=== PATIENT | female | born 1995 | race Caucasian/White ===

== ENCOUNTER 2023-09-29 10:29 | Outpatient (CLI) | payer BC ==
[~2023-09-29] VITALS: Ht 152.4 cm; Wt 83.6 kg
[~2023-09-29 10:29] MED LIST: FERR325T19 PO; PHEN-239
[2023-09-29 10:50] VITALS: BP 135/62; O2SAT 99
[2023-09-29] MEDS: ACETAMINOPHEN TAB 650MG DOSE (2X325MG) PO ONE (10:59)
[2023-09-29] MEDS: diphenhydrAMINE 50MG CAP PO ONE (10:59)
[2023-09-29] MEDS: FERRIC CARBOXYMALTOSE INJ 750 MG in NS 250 ML (>50kg) IV ONE (11:18)
[2023-09-29 13:20] VITALS: BP 110/71; O2SAT 100
== END 2023-09-29 13:20 ==
LOC: M INFU 10:29
PROVIDERS: ATTEND Internal Medicine Medical Oncology
DX: D50.9 Iron deficiency anemia, unspecified (principal)
CPT/HCPCS: 96365; J1439

== ENCOUNTER 2023-10-13 16:30 | Outpatient (CLI) | payer BC ==
[~2023-10-13] VITALS: Ht 152.4 cm; Wt 83.6 kg
[2023-10-13 16:30] VITALS: BP 132/61; O2SAT 98
[2023-10-13] MEDS: ACETAMINOPHEN TAB 650MG DOSE (2X325MG) PO ONE (16:35)
[2023-10-13] MEDS: diphenhydrAMINE 50MG/ML VIAL IV ONE (16:35)
[2023-10-13] MEDS: FERRIC CARBOXYMALTOSE INJ 750 MG in NS 250 ML (>50kg) IV ONE (16:44)
[2023-10-13 17:51] VITALS: BP 114/64; O2SAT 100
== END 2023-10-13 18:00 | disposition home or self-care (01) ==
LOC: M INFU 16:30
PROVIDERS: ATTEND Internal Medicine Medical Oncology
DX: D50.9 Iron deficiency anemia, unspecified (principal)
CPT/HCPCS: 96365; 96375; J1200; J1439

== ENCOUNTER → 2024-05-26 | Outpatient (REF) | LOC: M LAB 11:27 | PROVIDERS: ATTEND Family Medicine | DX: Z00.00 Encounter for general adult medical examination without abnormal findings (principal) ==

== ENCOUNTER → 2024-06-16 | Outpatient (CLI) | payer OTHER ==
[2024-06-16 10:06] LABS: CHOLESTEROL LEVEL 201 MG/DL (<200); CHOLESTEROL RISK RATIO 3.73 (<5); HDL CHOLESTEROL 53.8 MG/DL (>40); LDL CHOLESTEROL 117.2 MG/DL (<100); NON-HDL-C 147.2 MG/DL; TRIGLYCERIDES LEVEL 150 MG/DL (<150)
[2024-06-16 10:34] LABS: HCG, SERUM QUALITATIVE NEGATIVE (NEGATIVE)
== END ==
LOC: M LAB 08:33
PROVIDERS: ATTEND Physician Assistant
DX: E66.9 Obesity, unspecified (principal); E78.5 Hyperlipidemia, unspecified

== ENCOUNTER 2024-06-24 19:04 | Emergency (ER) | payer OTHER ==
[~2024-06-24] VITALS: Ht 157.5 cm; Wt 81.8 kg
[2024-06-24 19:07] VITALS: BP 128/67; TEMP 98.2; O2SAT 98
[2024-06-24 20:33] LABS: BASO # 0.1 10^3/uL (0.0-0.2); BASO % 0.7 % (0.0-1.0); EOS # 0.2 10^3/uL (0.0-0.5); EOS % 2.1 % (0.0-3.0); HEMATOCRIT 36.6 % (36.0-47.0); HEMOGLOBIN 11.9 g/dl (12.0-15.5); LYMPH # 2.8 10^3/uL (1.5-5.0); LYMPH % 37.9 % (24.0-44.0); MEAN CORPUSCULAR HEMOGLOBIN 26.2 pg (27.0-33.0); MEAN CORPUSCULAR HGB CONC 32.5 g/dl (32.0-36.5); MEAN CORPUSCULAR VOLUME 80.4 fl (80.0-96.0); MONO # 0.5 10^3/uL (0.0-0.8); MONO % 7.2 % (2.0-8.0); NEUTROPHILS # 3.8 10^3/uL (1.5-8.5); NEUTROPHILS % 51.6 % (36.0-66.0); PLATELET COUNT, AUTOMATED 291 10^3/uL (150-450); RED BLOOD COUNT 4.55 10^6/uL (4.00-5.40); WHITE BLOOD COUNT 7.5 10^3/uL (4.0-10.0)
[2024-06-24 21:03] LABS: ALBUMIN 3.9 G/DL (3.2-5.2); ALKALINE PHOSPHATASE 73 U/L (35-104); ALT/SGPT 29 U/L (7.0-40); AST/SGOT 16 U/L (<34); BILIRUBIN,TOTAL 0.2 MG/DL (0.3-1.2); BLOOD UREA NITROGEN 14 MG/DL (9-23); CALCIUM LEVEL 10.1 MG/DL (8.5-10.1); CARBON DIOXIDE LEVEL 24 MMOL/L (20-31); CHLORIDE LEVEL 107 MMOL/L (98-107); CREATININE FOR GFR 0.58 MG/DL (0.55-1.30); GLOMERULAR FILTRATION RATE > 60.0 (>60); GLUCOSE, FASTING 85 MG/DL (60-100); POTASSIUM SERUM 3.7 MMOL/L (3.5-5.1); SODIUM LEVEL 139 MMOL/L (136-145); TOTAL PROTEIN 7.2 G/DL (5.7-8.2)
[2024-06-24 21:05] LABS: HEPATITIS B SURFACE ANTIBODY NEGATIVE (POSITIVE)
[2024-06-24 21:17] LABS: HEPATITIS B SURFACE ANTIGEN NEGATIVE (NEGATIVE)
[2024-06-24 21:30] LABS: HIV 1&2 SCREEN NEGATIVE (NEGATIVE)
[2024-06-24 21:38] LABS: HEPATITIS C VIRUS ABY INDEX 0.02 INDEX (<0.8)
== END 2024-06-24 20:30 | disposition home or self-care (01) ==
LOC: M ED 19:04
DX: Z77.21 Contact with and (suspected) exposure to potentially hazardous body fluids (principal); W46.0XXA Contact with hypodermic needle, initial encounter

== ENCOUNTER → 2024-07-28 | Outpatient (CLI) | payer OTHER | LOC: M RAD 08:40 | PROVIDERS: ATTEND Advanced Practice Midwife | DX: O36.80X0 Pregnancy with inconclusive fetal viability, not applicable or unspecified (principal) ==

== ENCOUNTER → 2024-08-12 | Outpatient (REF) | payer OTHER | LOC: M LAB REF 12:40 | PROVIDERS: ATTEND Physician Assistant Medical | DX: J02.9 Acute pharyngitis, unspecified (principal) ==

== ENCOUNTER → 2024-08-12 | Outpatient (REF) | LOC: M EMP 08:24 | PROVIDERS: ATTEND Family Medicine | DX: Z11.52 Encounter for screening for COVID-19 (principal) ==

== ENCOUNTER → 2024-08-17 | Outpatient (CLI) | payer MEDICAID, OTHER, SELFPAY ==
[2024-08-17 18:13] LABS: HEMATOCRIT 38.6 % (36.0-47.0); HEMOGLOBIN 12.3 g/dl (12.0-15.5); MEAN CORPUSCULAR HEMOGLOBIN 25.4 pg (27.0-33.0); MEAN CORPUSCULAR HGB CONC 31.9 g/dl (32.0-36.5); MEAN CORPUSCULAR VOLUME 79.6 fl (80.0-96.0); PLATELET COUNT, AUTOMATED 279 10^3/uL (150-450); RED BLOOD COUNT 4.85 10^6/uL (4.00-5.40); WHITE BLOOD COUNT 4.9 10^3/uL (4.0-10.0)
[2024-08-17 19:09] LABS: HIV 1&2 SCREEN NEGATIVE (NEGATIVE)
[2024-08-17 19:18] LABS: HEPATITIS C VIRUS ABY INDEX 0.13 INDEX (<0.8)
[2024-08-17 19:19] LABS: Trichomonas vaginalis (AMP) NOT DETECTED (NEGATIVE)
[2024-08-17 19:43] LABS: GC DNA AMPLIFICATION NEGATIVE (NEGATIVE)
== END ==
LOC: M PLALAB 15:04
PROVIDERS: ATTEND Nurse Practitioner Family
DX: Z34.80 Encounter for supervision of other normal pregnancy, unspecified trimester (principal)

== ENCOUNTER → 2024-10-15 | Outpatient (CLI) | payer OTHER | LOC: M WHC 11:39 | PROVIDERS: ATTEND Nurse Practitioner Family | DX: Z34.80 Encounter for supervision of other normal pregnancy, unspecified trimester (principal); Z3A.20 20 weeks gestation of pregnancy ==

== ENCOUNTER → 2024-10-16 | Outpatient (REF) | payer OTHER | LOC: M LAB REF 18:57 | PROVIDERS: ATTEND Physician Assistant | DX: J02.9 Acute pharyngitis, unspecified (principal) ==

== ENCOUNTER → 2024-10-29 | Outpatient (CLI) | payer OTHER | LOC: M WHC 10:11 | PROVIDERS: ATTEND Nurse Practitioner Family | DX: Z34.80 Encounter for supervision of other normal pregnancy, unspecified trimester (principal) ==

== ENCOUNTER → 2024-11-18 | Outpatient (CLI) | payer OTHER ==
[~2024-11-18] MED LIST changes: -PHEN-239; +PHEN37.511
[2024-11-18 15:32] LABS: HEMATOCRIT 36.9 % (36.0-47.0); HEMOGLOBIN 11.3 g/dl (12.0-15.5); MEAN CORPUSCULAR HEMOGLOBIN 23.3 pg (27.0-33.0); MEAN CORPUSCULAR HGB CONC 30.6 g/dl (32.0-36.5); MEAN CORPUSCULAR VOLUME 76.2 fl (80.0-96.0); PLATELET COUNT, AUTOMATED 283 10^3/uL (150-450); RED BLOOD COUNT 4.84 10^6/uL (4.00-5.40); WHITE BLOOD COUNT 6.9 10^3/uL (4.0-10.0)
[2024-11-18 15:52] LABS: GLUCOSE CHALLENGE TEST 1 HOUR 123 MG/DL (LESS THAN 140)
[2024-11-18 15:54] LABS: IRON (FE) 32 UG/DL (50-170)
[2024-11-18 15:57] LABS: FERRITIN 77.2 NG/ML (7.3-270.7)
[2024-11-18 16:22] LABS: HIV 1&2 SCREEN NEGATIVE (NEGATIVE)
[2024-11-18 16:30] LABS: HEPATITIS C VIRUS ABY INDEX 0.03 INDEX (<0.8)
[2024-11-18 16:49] LABS: Trichomonas vaginalis (AMP) NOT DETECTED (NEGATIVE)
[2024-11-18 17:13] LABS: GC DNA AMPLIFICATION NEGATIVE (NEGATIVE)
== END ==
LOC: M PLALAB 11:12
PROVIDERS: ATTEND Nurse Practitioner Family
DX: Z34.80 Encounter for supervision of other normal pregnancy, unspecified trimester (principal)

== ENCOUNTER → 2025-02-01 | Outpatient (REF) | payer OTHER | LOC: M SFHCWAGY 14:54 | PROVIDERS: ATTEND Family Medicine | DX: Z36.89 Encounter for other specified antenatal screening (principal); Z3A.36 36 weeks gestation of pregnancy ==

== ENCOUNTER 2025-02-21 07:26 | Inpatient (IN) | payer OTHER, MEDICAID ==
[~2025-02-21] VITALS: Ht 152.4 cm; Wt 95.1 kg
[2025-02-21] VITALS (24 sets, daily range): BP systolic 98–140; BP diastolic 53–84
[2025-02-21] MEDS ORDERED: PREN1CHW4 PO (07:46)
[2025-02-21] MEDS ORDERED: TRANEXAMIC ACID INJection 1,000 MG in NS 100 ML IV PRN (07:55)
[2025-02-21] MEDS ORDERED: OXYTOCIN DRIP 30 UNITS in IV 1 EA IV PRN (07:55)
[2025-02-21] MEDS ORDERED: CARBOPROST TROMETHAMINE 250 MCG/ML AMP IM PRN (07:55)
[2025-02-21] MEDS ORDERED: OXYTOCIN INJ 10UNITS/ML 1ML VIAL IM PRN (07:55)
[2025-02-21] MEDS ORDERED: LIDOCAINE 1% MDV 20 ML VIAL INFIL PRN (07:55)
[2025-02-21] MEDS ORDERED: HOME MED LIST COMPLETE! XX SCH (07:55)
[2025-02-21] MEDS ORDERED: METHYLERGONOVINE MALEATE 0.2 MG/ML 1 ML VIAL IM PRN (07:55)
[2025-02-21 08:20] LABS: PLATELET COUNT, AUTOMATED 305 10^3/uL (150-450)
[2025-02-21] MEDS: miSOPROStol 50 MCG 1/2 TABLET PO SCH (09:06)
[2025-02-21 09:16] LABS: HIV 1&2 SCREEN NEGATIVE (NEGATIVE)
[2025-02-21 09:24] LABS: HEPATITIS C VIRUS ABY INDEX < 0.02 INDEX (<0.8)
[2025-02-21] MEDS: CALCIUM CARBONATE 500 MG CHEW U/D PO PRN (09:25)
[2025-02-21] MEDS: OXYTOCIN DRIP 30 UNITS in IV 1 EA IV SCH (18:21)
[2025-02-21] MEDS: LR 1,000 ML IV SCH (18:21)
[2025-02-21] MEDS ORDERED: LR 500 ML IV PRN (23:15)
[2025-02-21] MEDS ORDERED: NALOXONE INJ 0.4 MG/1 ML VIAL IV PRN (23:15)
[2025-02-21] MEDS ORDERED: EPIDURAL/PCA KEYS XX PRN (23:15)
[2025-02-21] MEDS: ONDANSETRON 4MG 2ML VIAL IV PRN (23:45)
[2025-02-22] VITALS (33 sets, daily range): BP systolic 86–130; BP diastolic 49–71; O2SAT 98–99
[2025-02-22] MEDS: FENTANYL/ROPIVACAINE/NACL BAG 100 ML EPIDURAL SCH
[2025-02-22] MEDS: LACTATED RINGER'S 1000 ML IV STA (00:51)
[2025-02-22] MEDS: diphenhydrAMINE 50 MG/ML VIAL IV PRN (04:20)
[2025-02-22] MEDS ORDERED: ANUSOL HC CREAM 30 GM TOP PRN (04:40)
[2025-02-22] MEDS ORDERED: ACETAMINOPHEN 325 MG TAB PO PRN (04:40)
[2025-02-22] MEDS ORDERED: RHOGAM 300MCG (1500IU) INJ IM SCH (04:40)
[2025-02-22] MEDS ORDERED: DIBUCAINE 1% OINTMENT 30 GM TOP PRN (04:40)
[2025-02-22] MEDS ORDERED: IBUPROFEN 600 MG TAB PO PRN (04:40)
[2025-02-22] MEDS ORDERED: MOM 30 ML SUSPENSION UDC PO PRN (04:40)
[2025-02-22] MEDS: IBUPROFEN 800 MG TAB PO PRN (06:24)
[2025-02-22] MEDS: PRENATAL VITAMINS CHEWABLE TABLET PO SCH (07:31)
[2025-02-22] MEDS: DOCUSATE SODIUM 100 MG CAPSULE PO PRN (19:26)
[2025-02-22] MEDS: ACETAMINOPHEN 500 MG TAB PO PRN (19:26)
[2025-02-23 06:08] VITALS: BP 111/55; O2SAT 97
[2025-02-24] MEDS ORDERED: MEASLES,MUMPS,RUBELLA VACCINE INJ (MMR-II) SC.IMMUN ONE (09:00)
== END 2025-02-23 14:45 | disposition home or self-care (01) | DRG 560 ==
LOC: M LDI 07:26 → M OBS 02-22 06:11
PROVIDERS: ADMIT Advanced Practice Midwife; ATTEND Advanced Practice Midwife
PROC: 3E0P7GC Introduction of Other Therapeutic Substance into Female Reproductive, Via Natural or Artificial Opening (ICD-10-PCS; 2025-02-21)
PROC: 10E0XZZ Delivery of Products of Conception, External Approach (ICD-10-PCS; principal; 2025-02-22)
DX: O32.6XX0 Maternal care for compound presentation, not applicable or unspecified (principal); Z37.0 Single live birth; Z3A.39 39 weeks gestation of pregnancy

== ENCOUNTER 2025-02-26 17:16 | Emergency (ER) | payer OTHER ==
[~2025-02-26] VITALS: Ht 152.4 cm; Wt 89.4 kg
[~2025-02-26 17:16] MED LIST changes: +PREN1CHW4 PO
[2025-02-26 18:06] LABS: KETONE, URINE AUTO RFX NEGATIVE (NEGATIVE); NITRITE, URINE AUTO RFX NEGATIVE (NEGATIVE); RBC, URINE AUTO RFX 4 /HPF (0-3); SQUAM EPITHELIAL CELL UR AURFX 1 /HPF (0-6); WBC, URINE AUTO RFX 8 /HPF (0-3)
[2025-02-26 18:07] LABS: LEUKOCYTE ESTERASE UR AUTO RFX 1+ (NEGATIVE)
[2025-02-26 18:11] LABS: BASO # 0.0 10^3/uL (0.0-0.2); BASO % 0.3 % (0.0-1.0); EOS # 0.1 10^3/uL (0.0-0.5); EOS % 0.7 % (0.0-3.0); LYMPH # 1.2 10^3/uL (1.5-5.0); LYMPH % 11.5 % (24.0-44.0); MONO # 0.5 10^3/uL (0.0-0.8); MONO % 4.5 % (2.0-8.0); NEUTROPHILS # 8.7 10^3/uL (1.5-8.5); NEUTROPHILS % 82.4 % (36.0-66.0); PLATELET COUNT, AUTOMATED 363 10^3/uL (150-450)
[2025-02-26 18:32] LABS: ALT/SGPT 46 U/L (7.0-40); AST/SGOT 36 U/L (<34); CALCIUM LEVEL 10.4 MG/DL (8.5-10.1); CARBON DIOXIDE LEVEL 25 MMOL/L (20-31); CHLORIDE LEVEL 101 MMOL/L (98-107); CREATININE FOR GFR 0.68 MG/DL (0.55-1.30); GLOMERULAR FILTRATION RATE > 90.0 (>60); POTASSIUM SERUM 4.0 MMOL/L (3.5-5.1); SODIUM LEVEL 138 MMOL/L (136-145)
[2025-02-26] MEDS: ACETAMINOPHEN 325 MG TAB PO ONE (18:41)
[2025-02-26] MEDS: NS 500 ML IV ONE (18:42)
[2025-02-26] MEDS: MORPHINE 4 MG/ML 1 ML VIAL IV ONE ×2 (18:42→23:04)
[2025-02-26] MEDS: READI-CAT 2 PO SCH (18:43)
[2025-02-27] MEDS ORDERED: METR-265 PO (00:35)
[2025-02-27 00:45] VITALS: BP 111/62; TEMP 97.1; O2SAT 98
[2025-02-27 01:18] LABS: GC DNA AMPLIFICATION NEGATIVE (NEGATIVE)
== END 2025-02-27 01:00 | disposition home or self-care (01) ==
LOC: M ED 17:16
DX: N76.0 Acute vaginitis (principal); R10.9 Unspecified abdominal pain; N85.2 Hypertrophy of uterus; N13.1 Hydronephrosis with ureteral stricture, not elsewhere classified; N20.0 Calculus of kidney; Z91.013 Allergy to seafood; Z91.041 Radiographic dye allergy status; Z79.2 Long term (current) use of antibiotics; Z79.810 Long term (current) use of selective estrogen receptor modulators (SERMs)

== ENCOUNTER → 2025-04-20 | Outpatient (REF) | payer OTHER ==
[~2025-04-20] MED LIST changes: +METR-265 PO
== END ==
LOC: M SFHCWAGY 15:16
PROVIDERS: ATTEND Advanced Practice Midwife
DX: L98.9 Disorder of the skin and subcutaneous tissue, unspecified (principal)